=== PATIENT | male | born 1995 | race Caucasian/White ===

== ENCOUNTER 2017-02-22 15:54 | Emergency (ER) | payer OTHER ==
[~2017-02-22] VITALS: Ht 172.7 cm; Wt 54.2 kg
[2017-02-22 15:57] VITALS: TEMP 36.6; Ht 172.7 cm; Wt 54.2 kg
[2017-02-22] MEDS ORDERED: SODIUM CHLORIDE 0.9% 1000ML 1,000 ML IV STA ×2 (16:14→17:48)
[2017-02-22] MEDS ORDERED: ONDANSETRON 8 MG/54 ML D5W IV STA (16:14)
[2017-02-22 16:37] LABS: BASO % 0.1 %; BASO ABS # 0.01 K/uL (0-0.2); COMPLETE YES; EOS % 0.3 %; HEMATOCRIT 43.2 % (42-52); IG% 0.1 %; LYMPH % 3.2 %; LYMPH ABS # 0.38 K/uL (1.2-3.4); MEAN CELL VOLUME 87.1 fL (80-100); MEAN CORPUSCULAR HEMOGLOBIN 30.8 pg (25-34); MEAN CORPUSCULAR HGB CONC 35.4 g/dl (32-36); MEAN PLATELET VOLUME 9.1 fL (7.4-10.4); MONO % 5.7 %; NEUT % 90.6 %; PLATELET COUNT 226 K/uL (130-400); RED BLOOD COUNT 4.96 M/uL (4.7-6.1); WHITE BLOOD COUNT 11.98 K/uL (4.8-10.8)
[2017-02-22 16:55] LABS: CALCIUM 8.9 mg/dl (8.5-10.1); CREATININE 0.99 mg/dl (0.60-1.40); POTASSIUM 3.4 mmol/L (3.5-5.1)
[2017-02-22 16:58] LABS: ALB/GLOB RATIO 1.2 (0.9-2)
--- NOTE | 2017-02-22 17:00 | DIAGNOSTIC IMAGING REPORT ---
PA CHEST RADIOGRAPH AND UPRIGHT AND SUPINE AP RADIOGRAPHS OF THE ABDOMEN CLINICAL HISTORY: Vomiting. Abdominal pain. COMPARISON STUDY: No previous studies for comparison. FINDINGS: Lung volumes are normal. Lungs are clear. No pneumothorax or pleural effusions present. Cardiac size is normal. Mediastinal contours are normal. There is no free air. The bowel gas pattern is normal. IMPRESSION: 1. No free air or evidence of bowel obstruction. 2. No acute cardiopulmonary findings. Electronically signed by: Andrzej Aragon M.D. 02/22/2017 4:59 PM Dictated Date/Time: 02/22/2017 4:59 PM
[2017-02-22] MEDS ORDERED: KETOROLAC TROMETHAMINE 30 MG/ML VIAL IV STA (17:48)
--- NOTE | 2017-02-22 17:58 | EMERGENCY ROOM VISIT NOTE ---
History Report prepared by Radha: Digna Umana Under the Supervision of: Dr. Judie Neal D.O. First contact with patient: 16:00 Chief Complaint: VOMITING Stated Complaint: VOMITING,PAIN ABD AND CHEST History of Present Illness The patient is a 22 year old male who presents to the Emergency Room with complaints of constant severe vomiting starting this morning. The patient states that he woke up early this morning to feel pressure in his stomach that caused him to vomit. He states that he still went to work because he couldn't find anyone to cover and continued vomiting there. He states he left work two hours ago and was still vomiting. He states that he sat in a bath for 30 minutes and it made it worse. He reports that he came to the ED because he started to experience numbness in his legs, arms, and hands. He complains of nausea, a headache, burning with urination, not urinating all day today, and abdominal pain. He states that he believes his abdominal pain is from vomiting so much. The patient states the vomited approximately 35 times today. 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 He notes his roommate's baby was vomiting this morning as well. The patient denies eating anything out of the ordinary, diarrhea, changes in his bowel movements, and abdominal surgery. He notes that he went to [place] in December. Source of History: patient Onset: this morning Position: other (global) Symptom Intensity: severe Quality: pressure Timing: constant Modifying Factors (Worsening): other (a bath) Associated Symptoms: + headache, + nausea, + abdominal pain, + urinary symptoms, + numbness (legs, arms, hands), No diarrhea Note: The patient denies eating anything out of the ordinary, changes in bowel movements, and abdominal surgery. Review of Systems Pt denies headache, change in vision, fevers, chest pain, shortness of breath, nausea, vomiting, diarrhea, pain with urination, and melena. Past Medical & Surgical Medical Problems: (1) No Known Active Medical Problems Family History No pertinent family history Social History Smoking Status: Never Smoker Marital Status: in relationship Housing Status: lives with roommate Occupation Status: employed Current/Historical Medications Scheduled Ondansetron Odt (Zofran Odt), 8 MG SL Q8 Allergies Uncoded Allergies: MUSHROOMS (Allergy, Intermediate, Hives, throat swelling, 02/22/17) SEAFOOD (Allergy, Intermediate, Hives, throat swelling, 02/22/17) Physical Exam Vital Signs Date Time Temp Pulse Resp B/P (MAP) Pulse Ox O2 Delivery O2 Flow Rate FiO2 02/22/17 18:46 74 16 96/46 97 02/22/17 17:53 79 16 108/56 96 Room Air 02/22/17 15:57 36.6 85 16 114/78 99 Room Air Physical Exam GENERAL: alert, thin, ill appearing, well nourished, no distress, non-toxic EYE EXAM: normal conjunctiva, PERRL and EOM's grossly intact OROPHARYNX: no exudate, no erythema, lips, buccal mucosa, and tongue normal and mucous membranes are dry NECK: supple, no nuchal rigidity, no adenopathy, non-tender LUNGS: Clear to auscultation. Normal chest wall mechanics HEART: no murmurs, S1 normal and S2 normal ABDOMEN: abdomen soft, non-tender, normo-active bowel sounds, no masses, no rebound or guarding, generalized abdominal discomfort. BACK: Back is symmetrical on inspection and there is no deformity, no midline tenderness, no CVA tenderness. SKIN: no rashes and no bruising UPPER EXTREMITIES: upper extremities are grossly normal. LOWER EXTREMITIES: No pitting edema. NEURO EXAM: Normal sensorium, cranial nerves II-XII grossly intact, normal speech, no gross weakness of arms, no gross weakness of legs. Medical Decision & Procedures ER Provider Diagnostic Interpretation: Radiology results have been interpreted by the radiologist and reviewed by me. PA CHEST RADIOGRAPH AND UPRIGHT AND SUPINE AP RADIOGRAPHS OF THE ABDOMEN CLINICAL HISTORY: Vomiting. Abdominal pain. COMPARISON STUDY: No previous studies for comparison. FINDINGS: Lung volumes are normal. Lungs are clear. No pneumothorax or pleural effusions present. Cardiac size is normal. Mediastinal contours are normal. There is no free air. The bowel gas pattern is normal. IMPRESSION: 1. No free air or evidence of bowel obstruction. 2. No acute cardiopulmonary findings. Electronically signed by: Andrzej Aragon M.D. 02/22/2017 4:59 PM Dictated Date/Time: 02/22/2017 4:59 PM Laboratory Results 02/22/17 16:29 Red Blood Count 4.96, Mean Corpuscular Volume 87.1, Mean Corpuscular Hemoglobin 30.8, Mean Corpuscular Hemoglobin Concent 35.4, Mean Platelet Volume 9.1, Neutrophils (%) (Auto) 90.6, Lymphocytes (%) (Auto) 3.2, Monocytes (%) (Auto) 5.7, Eosinophils (%) (Auto) 0.3, Basophils (%) (Auto) 0.1, Neutrophils # (Auto) 10.86, Lymphocytes # (Auto) 0.38, Monocytes # (Auto) 0.68, Eosinophils # (Auto) 0.04, Basophils # (Auto) 0.01 02/22/17 16:29 Test 02/22/17 16:29 White Blood Count 11.98 K/uL (4.8-10.8) Red Blood Count 4.96 M/uL (4.7-6.1) Hemoglobin 15.3 g/dL (14.0-18.0) Hematocrit 43.2 % (42-52) Mean Corpuscular Volume 87.1 fL (80-100) Mean Corpuscular Hemoglobin 30.8 pg (25-34) Mean Corpuscular Hemoglobin Concent 35.4 g/dl (32-36) Platelet Count 226 K/uL (130-400) Mean Platelet Volume 9.1 fL (7.4-10.4) Neutrophils (%) (Auto) 90.6 % Lymphocytes (%) (Auto) 3.2 % Monocytes (%) (Auto) 5.7 % Eosinophils (%) (Auto) 0.3 % Basophils (%) (Auto) 0.1 % Neutrophils # (Auto) 10.86 K/uL (1.4-6.5) Lymphocytes # (Auto) 0.38 K/uL (1.2-3.4) Monocytes # (Auto) 0.68 K/uL (0.11-0.59) Eosinophils # (Auto) 0.04 K/uL (0-0.5) Basophils # (Auto) 0.01 K/uL (0-0.2) RDW Standard Deviation 40.8 fL (36.4-46.3) RDW Coefficient of Variation 12.8 % (11.5-14.5) Immature Granulocyte % (Auto) 0.1 % Immature Granulocyte # (Auto) 0.01 K/uL (0.00-0.02) Anion Gap 6.0 mmol/L (3-11) Est Creatinine Clear Calc Drug Dose 89.0 ml/min Estimated GFR () 123.9 Estimated GFR (Non- 106.9 BUN/Creatinine Ratio 23.0 (10-20) Calcium Level 8.9 mg/dl (8.5-10.1) Total Bilirubin 0.9 mg/dl (0.2-1) Aspartate Amino Transf (AST/SGOT) 15 U/L (15-37) Alanine Aminotransferase (ALT/SGPT) 23 U/L (12-78) Alkaline Phosphatase 68 U/L (45-117) Total Protein 7.8 gm/dl (6.4-8.2) Albumin 4.2 gm/dl (3.4-5.0) Globulin 3.6 gm/dl (2.5-4.0) Albumin/Globulin Ratio 1.2 (0.9-2) Lipase 76 U/L (73-393) Laboratory results per my review. Medications Administered Medications (Trade) Dose Ordered Sig/Bryanna Route Start Time Stop Time Status Last Admin Dose Admin Sodium Chloride 1,000 ml @ 999 mls/hr Q1H1M STAT IV 02/22/17 16:14 02/22/17 17:14 DC 02/22/17 16:28 999 MLS/HR Ondansetron HCl (Zofran 8mg Iv) 8 mg NOW STAT IV 02/22/17 16:14 02/22/17 16:15 DC 02/22/17 16:28 8 MG Sodium Chloride 1,000 ml @ 999 mls/hr Q1H1M STAT IV 02/22/17 17:48 02/22/17 18:48 DC 02/22/17 17:53 999 MLS/HR Ketorolac Tromethamine (Toradol Inj) 30 mg NOW STAT IV 02/22/17 17:48 02/22/17 17:50 DC 02/22/17 17:53 30 MG ED Course 1604: The patient was evaluated in room A4B. A complete history and physical exam was performed. 1614: Ordered Zofrain 8mg Iv 8 mg IV, NSS 1000 ml @ 999 mls/hr IV. 1735: I reevaluated the patient and he is doing well. 1748: Ordered Toradol Inj 30 mg IV, NSS 1000 ml @ 999 mls/hr IV. 1833: Upon reevaluation, the patient is feeling better and was able to tolerate PO. I discussed the findings and the treatment plan with the patient. He verbalizes agreement and understanding. The patient was discharged home. Medical Decision Differential diagnosis: Etiologies such as gastroenteritis, food borne illness, infections, appendicitis , diverticulitis, inflammatory bowel disease, obstruction, GI bleed, biliary pathology, as well as others were entertained. Patient improved here following medications and IV fluids. Repeat abdominal exam nontender and no rebound or guarding. Labs reassuring, imaging unremarkable. Did not feel patient warranted additional imaging including CAT scan at this time. Patient tolerated by mouth nimbly with a steady gait prior to discharge. Discussed with patient adequate hydration, bland diet, symptoms to watch and return for CT he verbalized understanding was agreeable with plan. Doubt perfect, occult GI bleed, diverticulitis, appendicitis, IBS, IBD, vascular etiology, pathology, bacteremia/sepsis. No orthostatic symptoms with standing, despite recorded slightly lower blood pressure at time of discharge. Medication Reconcilliation Current Medication List: was personally reviewed by me Blood Pressure Screening Patient's blood pressure: Normal blood pressure Impression Primary Impression: Vomiting Additional Impression: Abdominal pain Scribe Attestation The scribe's documentation has been prepared under my direction and personally reviewed by me in its entirety. I confirm that the note above accurately reflects all work, treatment, procedures, and medical decision making performed by me. Departure Information Dispostion Home / Self-Care Prescriptions Ondansetron Odt (ZOFRAN ODT) 8 Mg Tab 8 MG SL Q8 for Nausea, #20 TAB Prov: Judie Neal, 02/22/17 Referrals Shakeel Gray M.D. (PCP) Patient Instructions My [facility] Additional Instructions Please rest and drink plenty of clear liquids at frequent intervals to stay well -hydrated. He may use a nausea medication as provided. If you have any recurrent episodes of vomiting, develop worsening abdominal pain, fevers or chills, diarrhea, feels a you're going to black out, or you've any other new concerns, please return the emergency room. Problem Qualifiers Primary Impression: Vomiting Vomiting type: unspecified Vomiting Intractability: non-intractable Nausea presence: with nausea Qualified Codes: R11.2 - Nausea with vomiting, unspecified Additional Impression: Abdominal pain Abdominal location: generalized Qualified Codes: R10.84 - Generalized abdominal pain
[2017-02-22] MEDS ORDERED: ONDA8TAB13 SL (18:19)
[2017-02-22 18:46] VITALS: BP 96/46; PULSE 74; O2SAT 97
[2017-04-16] MEDS ORDERED: IBUP-1050 PO (09:58)
[2017-04-16] MEDS ORDERED: ACET-1256 PO (09:58)
== END 2017-02-22 18:47 | disposition home or self-care (01) ==
LOC: C.EDB 15:55 → C.EDA 18:47
DX: R11.2 Nausea with vomiting, unspecified (principal); R10.84 Generalized abdominal pain

== ENCOUNTER 2017-05-16 10:47 | Day surgery (SDC) | payer OTHER ==
[2017-04-16 09:58] VITALS: BMI 17.0
--- NOTE | 2017-05-05 13:18 | History and Physical ---
History & Physical Date May 05, 2017. Chief Complaint Right knee pain History of Present Illness The patient is a 22 year old male with complaints of Right knee pain. He previous had hardware put into his right tibia for a tibia fracture. He has been having pain for some time now and stating that his hardware can now be felt just on the other side of his skin. He would like to have this removed as it is causing him pain. Past Medical/Surgical History Medical Problems: (1) No Known Active Medical Problems Additional History Hepatic Disease: No Endocrine Disorder: No Kidney Disease: No Hypertension: No Heart Disease: No Bleeding Tendencies: No Infectious Diseases: No Allergies Coded Allergies: NO KNOWN DRUG ALLERGIES (Verified Allergy, Unknown, ., 04/16/17) Uncoded Allergies: MUSHROOMS (Allergy, Intermediate, Hives, throat swelling, 02/22/17) SEAFOOD (Allergy, Intermediate, Hives, throat swelling, 02/22/17) Home Medications Scheduled PRN Acetaminophen (Tylenol), 1,000 MG PO DAILY PRN for Pain Ibuprofen (Advil), 400-800 MG PO BID PRN for Pain Physical Examination Skin: warm/dry, no rash Eyes: normal inspection, EOMI ENT: normal ENT inspection Head: normocephalic, atraumatic Neck: supple, no adenopathy Respiratory/Chest: lungs clear, normal breath sounds Cardiovascular: regular rate, rhythm, no murmur Abdomen / GI: normal bowel sounds, non tender Extremities: normal inspection, normal range of motion, + pertinent finding ( palpable hardware of right tibia screw. ) Neurologic/Psych: no motor/sensory deficits, alert, oriented x 3 Diagnosis Right pickard pain secondary to hardware Plan of Treatment Patient started having pain as he noticed that his hardware was starting to tent his skin. He would bump into it and it would cause him pain. He would like to have this hardware removed. He will be scheduled for Right tibia removal of hardware. Risks and benefits to surgery were discussed that included but no limited to increased pain, infection, DVT, need for revision surgeries, failure to relieve all symptoms, damage to blood vessels, damage to nerves, PE, and anesthesia risks were all discussed. The patient understands these risks and wishes to proceed. All questions were answered to their satisfaction.
[~2017-05-16] VITALS: Ht 175.3 cm; Wt 54.5 kg
[~2017-05-16 10:47] MED LIST: ACET-1256 PO; CEFAZOLIN 1000MG/55 ML D5W IV SCH; IBUP-1050 PO; LACTATED RINGER'S 1000ML 1,000 ML IV SCH
[2017-05-16 11:14] VITALS: BP 116/76; PULSE 59; TEMP 36.3; O2SAT 97; Ht 175.3 cm; Wt 54.5 kg
[2017-05-16 11:39] LABS: HEMATOCRIT 40.4 % (42-52); MEAN CELL VOLUME 87.3 fL (80-100); MEAN CORPUSCULAR HEMOGLOBIN 31.1 pg (25-34); MEAN CORPUSCULAR HGB CONC 35.6 g/dl (32-36); MEAN PLATELET VOLUME 8.9 fL (7.4-10.4); PLATELET COUNT 226 K/uL (130-400); RED BLOOD COUNT 4.63 M/uL (4.7-6.1); WHITE BLOOD COUNT 5.55 K/uL (4.8-10.8)
[2017-05-16] MEDS ORDERED: BUPIVACAINE 0.25% 30 ML VIAL ONE (12:21)
--- NOTE | 2017-05-16 12:25 | History & Physical Bridge Note ---
H&P Re-Evaluation Bridge Note: I have examined the patient, reviewed the History & Physical and in the interval since the performance of the History & Physical I have noted the following changes of clinical significance: No changes noted
[2017-05-16] MEDS ORDERED: PROPOFOL IV EMULSION 10 MG/ML 20 ML VIAL IV ONE ×2 (13:04→14:30)
[2017-05-16] MEDS ORDERED: MIDAZOLAM HCL 1 MG/ML 2ML VIAL ONE (13:05)
[2017-05-16] MEDS ORDERED: FENTANYL CITRATE INJ 50 MCG/1 ML 2 ML VIAL ONE (13:05)
[2017-05-16] MEDS ORDERED: DEXAMETHASONE SOD INJ 4 MG/ML VIAL ONE (14:30)
[2017-05-16] MEDS ORDERED: ONDANSETRON INJ 2 MG/ML 2 ML VIAL ONE (14:30)
--- NOTE | 2017-05-16 14:57 | DIAGNOSTIC IMAGING REPORT ---
R TIBIA/FIBULA 2 VIEWS ROUTINE CLINICAL HISTORY: RIGHT TIBIA REMOVAL OF HARDWARE COMPARISON STUDY: None. FINDINGS: Total fluoroscopy time was 7 seconds. 5 fluoroscopic spot images of the right tibia/fibula were submitted. There are old, healed fractures within the midshaft of the tibia and fibula. Scattered lucencies within the tibia consistent with hardware removal. There is no hardware remaining. IMPRESSION: Fluoroscopy provided for removal of tibial hardware. Electronically signed by: Justino Middleton M.D. 05/16/2017 2:56 PM Dictated Date/Time: 05/16/2017 2:55 PM
[2017-05-16] MEDS ORDERED: OXYC-57 PO (15:10)
--- NOTE | 2017-05-16 15:13 | Discharge Instructions ---
Discharge Instructions Date of Service May 16, 2017. Admission Reason for Admission: Right Tibia Painful Hardware Discharge Discharge Diagnosis / Problem: Right tibia removal of hardware Discharge Goals Goal(s): Decrease discomfort, Improve function Activity Recommendations Activity Limitations: per Instructions/Follow-up section . Instructions / Follow-Up Instructions / Follow-Up ACTIVITY RECOMMENDATIONS: * Begin physical therapy 2-3 days after surgery. * Do range of motion knee exercises, as instructed, 4-6 times daily. * Weight bearing as tolerated, you may use the crutches if necessary SPECIAL CARE INSTRUCTIONS: * Change dressing 48 hours after surgery * Apply ice to knee for 72 hours after surgery. * Call office at if there are any problems such as excessive wound drainage or increased temperature above 100 degrees F. FOLLOW UP VISIT: If appointment is not already scheduled: Please call [facility] to make a follow-up appointment for 10-14 days after your surgery at . Current Hospital Diet Patient's current hospital diet: Regular Diet Discharge Diet Recommended Diet: Regular Diet Procedures Procedures Performed: Right Tibia Removal of Hardware Pending Studies Studies pending at discharge: no Medical Emergencies . Who to Call and When: Medical Emergencies: If at any time you feel your situation is an emergency, please call 911 immediately. . Non-Emergent Contact Non-Emergency issues call your: Surgeon Call Non-Emergent contact if: temperature is above 101.5, your pain is worsening, wound has increased drainage, wound has increased redness . "Provider Documentation" section prepared by Bradly Farrell. . VTE Core Measure Inpt VTE Proph given/why not?: Treatment not indicated [place] Drug Monitoring Program Search Results: patient reviewed within database, no issues identified
[2017-05-16] MEDS ORDERED: IBUPROFEN 200 MG TAB PO PRN (15:15)
[2017-05-16] MEDS ORDERED: ONDANSETRON INJ 2 MG/ML 2 ML VIAL IV PRN (15:15)
[2017-05-16] MEDS ORDERED: OXYCODONE/ACETAMINOPHEN 5-325 TAB PO PRN ×2 (15:15)
--- NOTE | 2017-05-16 15:16 | [facility] Operative Report ---
Operative Report Operative Date May 16, 2017. Pre-Operative Diagnosis Right painful retained hardware secondary to placement of intramedullary tibial nail Post-Operative Diagnosis Same Procedure(s) Performed Right Tibia Removal of Hardware Surgeon Dr. Priest Plant Controls Specialist Surgeon(s) EMIL Taylor Estimated Blood Loss 10 ml Findings As above Specimens A. Removed Hardware Right Tibia (Tibial Nail x1, screws x4) Drains none Anesthesia Gen. Complication(s) None Disposition Recovery Room / PACU Indications 22-year-old male who previously had a tibia fracture treated at outside facility. He was treated with an intramedullary tibial nail. The fracture is well-healed. The anterior proximal aspect of the nail is prominent and outside of the bone and painful. He wishes to proceed with removal of hardware. Description of Procedure Risks, benefits, and alternatives to surgery including but not limited to infection, pain, stiffness, nonunion, need for revision surgery, DVT, damage to blood vessels, damage to nerves, risks of anesthesia were discussed with the patient and they wished to proceed. The patient was identified and laterality was confirmed and marked. The patient received a preoperative antibiotic and was transferred to the operating room and placed in supine position and induced into general endotracheal anesthesia. A well-padded tourniquet was placed in the leg. The limb was then prepped and draped in the usual standard manner with ChloraPrep. The limb was exsanguinated and the tourniquet was inflated. I made a longitudinal incision medial to the patella. I sharply incised through the skin and then used Bovie electrocautery to achieve hemostasis. I then dissected down to the nail. It was rather prominent anteriorly. There was no locking cap. I then placed into position the extraction structural steel shop supervisor. I reutilized his proximal incision and dissected down to the proximal screws. The proximal screws were removed without difficulty. We then dissected over the distal aspect of the tibia where his distal screws had been placed. We utilized his previous incision and extended a little bit distally to remove both screws. We then placed the slaphammer extension onto the extraction tool. Then using a slap hammer we're able to extract the tibial nail without consultation. The wounds were thoroughly irrigated. The previous screw holes were debrided with a curet. The deep tissues near the tibial insertion were closed with interrupted #1 Vicryl suture. Subcutaneous tissues closed with interrupted 2-0 Vicryl suture. The skin was closed with interrupted 4-0 nylon. A sterile dressing was applied. All needle and sponge counts were correct at the end of the procedure. The patient was transferred to the PACU in stable condition without apparent complication. The PA-C was necessary for assistance with procedure for assistance in positioning, prepping, draping, retraction and closure. I attest to the content of the Intraoperative Record and any orders documented therein. Any exceptions are noted below.
[2017-05-16 15:53] VITALS: BP 116/68; PULSE 56; TEMP 36.3; O2SAT 98
--- NOTE | 2017-05-16 15:57 | Anesthesiology Progress Note ---
Anesthesia Post Op Note Date & Time May 16, 2017 at 15:57 Vital Signs Pain Intensity: 0 Vital Signs Past 12 Hours Date Time Temp Pulse Resp B/P (MAP) Pulse Ox O2 Delivery O2 Flow Rate FiO2 05/16/17 15:45 53 18 112/80 99 Room Air 05/16/17 15:40 36.6 54 18 110/79 100 Room Air 05/16/17 15:30 74 18 112/72 100 Oxymask 3 05/16/17 15:20 53 18 105/79 100 Oxymask 5 05/16/17 15:10 36.5 67 18 104/66 100 Oxymask 10 05/16/17 11:14 36.3 59 20 116/76 (89) 97 Room Air Notes Mental Status: alert / awake / arousable, participated in evaluation Pt Amnestic to Procedure: Yes Nausea / Vomiting: adequately controlled Pain: adequately controlled Airway Patency, RR, SpO2: stable & adequate BP & HR: stable & adequate Hydration State: stable & adequate Anesthetic Complications: no major complications apparent
[2017-05-16 16:35] VITALS: BP 124/69; PULSE 63; TEMP 36.4; O2SAT 98
== END 2017-05-16 16:45 | disposition home or self-care (01) ==
LOC: C.ACU 10:47
PROVIDERS: ATTEND Orthopaedic Surgery
DX: T84.84XA Pain due to internal orthopedic prosthetic devices, implants and grafts, initial encounter (principal); M25.561 Pain in right knee